=== PATIENT | male | born 1985 | race Caucasian/White ===

== ENCOUNTER 2022-12-04 18:33 | Emergency (ER) | payer OTHER, SELFPAY ==
[2022-12-04 18:44] VITALS: BP 129/95; PULSE 89; RESP 20; TEMP 37.1; O2SAT 97; BMI 25.3
--- NOTE | 2022-12-04 21:21 | ED.SKABFB ---
HPI - Skin/Abscess/Foreign Bdy General Chief complaint: Skin/Abscess/Foreign Body Stated complaint: worsening abcess Time Seen by Provider: 12/04/22 20:52 Source: patient Mode of arrival: Ambulatory Limitations: no limitations History of Present Illness HPI narrative: Patient is a 37-year-old male who stated that a couple days ago he started noticing some redness and swelling and a potential abscess developing in his left inguinal / upper thigh/perineal area. He is no testicular pain. No scrotal involvement. No drainage. It is somewhat tender the touch. No change in bowel habits. No problems urinating. Has not tried anything for the symptoms prior to arrival. Related Data Previous Rx's Medication Instructions Recorded cephalexin 500 mg capsule 500 mg PO QID 5 days #20 caps 12/04/22 Allergies Allergy/AdvReac Type Severity Reaction Status Date / Time No Known Drug Allergies Allergy Verified 12/04/22 18:49 Review of Systems Genitourinary Genitourinary: Reports system reviewed and no additional complaints, except as documented Integumentary/Breasts Skin/Breast: Reports system reviewed and no additional complaints, except as documented Hematologic/Lymphatic On Anticoagulants: No Patient History Social History Smoking Status: Never smoker Smoking Status: Never smoker alcohol intake frequency: holidays/special occasions only Substance Use Type: does not use Exam Initial Vital Signs Initial Vital Signs: Vital Signs Temperature 98.8 F 12/04/22 18:44 Pulse Rate 89 12/04/22 18:44 Respiratory Rate 20 12/04/22 18:44 Blood Pressure 129/95 H 12/04/22 18:44 Pulse Oximetry 97 12/04/22 18:44 Oxygen Delivery Method Room Air 12/04/22 18:44 General: bimanual renal exam normal bilaterally Skin Other: Patient has a 2 cm x 1 cm area of induration with what appears to be a center pustule located on his perineal area/ left upper inner thigh. It does have some surrounding erythema. Procedures Abscess I/D I&D #1: Site: other ( Perineum) Side (if applicable): left Local Anesthetic: lidocaine 1% Amount of anesthesia used (mL): 2 Technique: incised with #11 blade Irrigation: No Packing used?: none Course Orders Ordered: Discontinued Medications Cephalexin HCl (Cephalexin 250 Mg Capsule) 500 mg PO NOW ONE Stop: 12/04/22 21:23 Last Admin: 12/04/22 21:27 Dose: 500 mg Documented By: FIDEL Vital Signs Vital signs: Vital Signs - 8 hr 12/04/22 18:44 Temperature 98.8 F Pulse Rate 89 Respiratory Rate 20 Blood Pressure 129/95 H Pulse Oximetry 97 Oxygen Delivery Method Room Air MDM - Skin/Abscess/Foreign Bdy MDM Narrative Medical decision making narrative: patient does have what appears to be a small abscess that is confirmed with bedside ultrasound in the left upper inner thigh. It does have a small amount of surrounding erythema. Low suspicion that this is a perirectal/ perianal abscess. 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 It does not involve the scrotum or the testicles. Incision and drainage was performed with return of small amount of purulent material. No foreign body was noted. Given the surrounding erythema we will place him on antibiotics. Discharge patient home with return precautions. He expressed understanding and agreement. Discharge Plan Departure Patient Disposition: Home Clinical Impression: Abscess of skin or subcutaneous tissue, Cellulitis Instructions: DI for Cellulitis -- Adult Activity Restrictions/Additional Instructions: Expect drainage from the area. You can bathe like normal. Take the antibiotics as directed. Return to the emergency department for new or worsening symptoms. Prescriptions: New cephalexin 500 mg capsule 500 mg PO QID 5 Days Qty: 20 0RF Stand Alone Forms: Patient Portal/API
[2022-12-04] MEDS: cephALEXin 250 MG CAPSULE 500 MG PO (21:27)
--- NOTE | 2022-12-04 21:32 | PC.NURSE ---
Dr. Preston performed exam.
== END 2022-12-04 21:36 | disposition home or self-care (01) ==
PROVIDERS: Emergency Provider Emergency Medicine
DX: L02.416 Cutaneous abscess of left lower limb (principal); L03.116 Cellulitis of left lower limb
CPT/HCPCS: 10060; 99283